=== PATIENT | male | born 1965 | race Caucasian/White ===

== ENCOUNTER 2019-02-13 10:39 | Emergency (ER) | payer MEDICAID ==
--- NOTE | 2019-02-13 11:30 | EDM.PDOC ---
ED HPI GENERAL MEDICAL PROBLEM - General Chief Complaint: ENT Problem Stated Complaint: SORE THROAT, SINUS [id number] Time Seen by Provider: 02/13/19 11:00 Source of Information: Reports: Patient History Limitations: Reports: No Limitations - History of Present Illness Onset: Other (1 week; gradual worsening sore throat, facial pressure, postnasal drip causing cough. No SOB. + for chills and fatigue. ) Associated Symptoms: Reports: cough w sputum, Malaise - Related Data Allergies Allergy/AdvReac Type Severity Reaction Status Date / Time No Known Allergies Allergy Verified 02/13/19 10:47 Home Meds: Home Meds . [No Known Home Meds] 02/13/19 [History] Past Medical History HEENT History: Reports: Other (See Below) Other HEENT History: seasonal allergies Cardiovascular History: Reports: Other (See Below) Other Cardiovascular History: states BP has been "borderline" Respiratory History: Reports: None Gastrointestinal History: Reports: None Genitourinary History: Reports: None Musculoskeletal History: Reports: None Neurological History: Reports: None Psychiatric History: Reports: None Endocrine/Metabolic History: Reports: None Hematologic History: Reports: None Immunologic History: Reports: None Oncologic (Cancer) History: Reports: None Dermatologic History: Reports: None Social & Family History - Tobacco Use Smoking Status *Q: Never Smoker Second Hand Smoke Exposure: Yes ED ROS ENT - Review of Systems Review Of Systems: See Below Constitutional: Reports: Chills, Fatigue HEENT: Reports: Ear Pain, Sinus Problem, Throat Pain, Other (post nasal drip) Cardiovascular: Reports: No Symptoms GI/Abdominal: Reports: No Symptoms Musculoskeletal: Reports: No Symptoms Skin: Reports: No Symptoms Immunologic: Reports: Pollen Allergy, Other (Has been using allergy OTC med; not improivng) ED EXAM, ENT - Physical Exam Exam: See Below General Appearance: Alert, WD/WN, No Apparent Distress Ears: Normal External Exam, Normal Canal, Normal TMs Nose: Normal Inspection, Normal Mucousa, No Blood Mouth/Throat: Normal Inspection, Pharyngeal Erythema, Throat Pain, Other (Mild tonsil redness. No signs of abcess. Posterior drainage. + facial pain with palpation over maxillar sinuses manoj) Head: Facial Tenderness Neck: Normal Inspection, Supple, Non-Tender, Full Range of Motion Respiratory/Chest: No Respiratory Distress, Lungs Clear, Normal Breath Sounds Cardiovascular: Normal Peripheral Pulses, Regular Rate, Rhythm GI/Abdominal: Normal Bowel Sounds, Soft Extremities: Normal Inspection Psychiatric: Normal Affect, Normal Mood Skin: Warm, Dry, Intact, Normal Color Lymphatic: No Adenopathy Course - Vital Signs Text/Narrative:: x 1 week sinus congestion, postnasal drip and cough. facial pain over manoj sinuses. Post nasal drainage. No SOB and VSS. Last Recorded V/S: Last Vital Signs Temp 35.8 C 02/13/19 10:50 Pulse 88 02/13/19 10:50 Resp 18 02/13/19 10:50 BP 161/106 H 02/13/19 10:50 Pulse Ox 98 02/13/19 10:50 - Orders/Labs/Meds Orders: Active Orders 24 hr Category Date Time Status CULTURE STREP A CONFIRMATION [RM] Stat Lab 02/13/19 10:50 Results STREP SCRN A RAPID W CULT CONF [RM] Stat Lab 02/13/19 10:50 Results Departure - Departure Time of Disposition: 11:47 Disposition: Home, Self-Care 01 Clinical Impression: Acute maxillary sinusitis - Discharge Information *PRESCRIPTION DRUG MONITORING PROGRAM REVIEWED*: Not Applicable Instructions: Sinusitis, Adult, [id number] Additional Instructions: Sinusitis - amoxicillin three x per day x 10 days. OTC mucinex and allergy meds. Return to Primary Care if not improving over the next week. - My Orders Last 24 Hours: My Active Orders 02/13/19 10:50 CULTURE STREP A CONFIRMATION [RM] Stat STREP SCRN A RAPID W CULT CONF [RM] Stat - Assessment/Plan Last 24 Hours: My Active Orders 02/13/19 10:50 CULTURE STREP A CONFIRMATION [RM] Stat STREP SCRN A RAPID W CULT CONF [RM] Stat
== END 2019-02-13 11:54 | disposition home or self-care (01) ==
LOC: DL.ED 10:39
DX: J01.00 Acute maxillary sinusitis, unspecified (principal); Z77.22 Contact with and (suspected) exposure to environmental tobacco smoke (acute) (chronic)
CPT/HCPCS: 87081; 87430; 99283

== ENCOUNTER 2022-04-10 09:55 | Emergency (ER) | payer MEDICAID ==
[2022-04-10 11:02] LABS: CORONAVIRUS COVID-19 NAA NEGATIVE (NEGATIVE)
== END 2022-04-10 11:50 | disposition home or self-care (01) ==
LOC: DL.ED 09:55
DX: J06.9 Acute upper respiratory infection, unspecified (principal); Z20.822 Contact with and (suspected) exposure to COVID-19
CPT/HCPCS: 0240U; 87081; 87430; 99283